=== PATIENT | male | born 1965 | race American Indian/Alaskan Native ===

== ENCOUNTER 2017-11-04 06:11 | Day surgery (SDC) | payer OTHER ==
[2017-11-04] MEDS ORDERED: WATER FOR IRRIG STERILE IR ONE (07:05)
[2017-11-04] MEDS: NACL 0.9% 1000 ML 1,000 ML IV SCH ×2 (07:42→07:50)
--- NOTE | 2017-11-04 07:45 | Anesthesia Consultation ---
Anesthesia Consult and Med Hx Date of service: 11/04/17 - Airway Anesthetic Teeth Evaluation: Good ROM Head & Neck: Adequate Mental/Hyoid Distance: Adequate Mallampati Class: Class III Intubation Access Assessment: Possibly Difficult - Pulmonary Exam CTA: Yes - Cardiac Exam Cardiac Exam: RRR - Pre-Operative Health Status ASA Pre-Surgery Classification: ASA3 Proposed Anesthetic Plan: MAC - Pre-Anesthesia Comment Pre-Anesthesia Comments: Hx CHF and SOB. Hospitalized 07/2017. EF 35%. HX DVT, Xarelto stopped 3 days ago. Intermittent right side numbness due to compressed nerve - Pulmonary SOB: Yes - Cardiovascular System Hx Hypertension: Yes Hx Angina: No Hx Peripheral Vascular Disease: Yes (DVT ) - Endocrine Hx Renal Disease: Yes (Chronic renal Insuff ) Hx Insulin Dependent Diabetes: Yes
--- NOTE | 2017-11-04 07:46 | Anesthesia Day of Surgery ---
Anesthesia Day of Surgery - Day of Surgery Patient Examined: Yes Patient H&P Reviewed: Yes Patient is NPO: Yes
[2017-11-04] MEDS ORDERED: DIPRIVAN 10 MG/ML IV ONE ×3 (07:53→09:05)
[2017-11-04] MEDS ORDERED: XYLOCAINE 1% 20 mL ONE (07:55)
[2017-11-04] MEDS ORDERED: INFANTS' GAS RELIEF PO ONE (08:35)
[2017-11-04 09:39] VITALS: BP 104/61
== END 2017-11-04 06:12 | disposition home or self-care (01) ==
LOC: GIO 06:11
PROVIDERS: ATTEND Internal Medicine Gastroenterology
DX: D12.0 Benign neoplasm of cecum (principal); K92.1 Melena; R74.8 Abnormal levels of other serum enzymes; K58.9 Irritable bowel syndrome, unspecified; K64.9 Unspecified hemorrhoids; K63.5 Polyp of colon; I13.0 Hypertensive heart and chronic kidney disease with heart failure and stage 1 through stage 4 chronic kidney disease, or unspecified chronic kidney disease; E11.22 Type 2 diabetes mellitus with diabetic chronic kidney disease; N18.9 Chronic kidney disease, unspecified; I50.9 Heart failure, unspecified; G47.33 Obstructive sleep apnea (adult) (pediatric); Z90.49 Acquired absence of other specified parts of digestive tract; Z98.890 Other specified postprocedural states; Z87.442 Personal history of urinary calculi; Z86.718 Personal history of other venous thrombosis and embolism; Z79.899 Other long term (current) drug therapy
CPT/HCPCS: 43235; 45385; 82962; 88305; J2704; J7030

== ENCOUNTER 2020-06-22 06:36 | Emergency (ER) | payer MEDICARE, OTHER ==
--- NOTE | 2020-06-22 08:59 | Event Note ---
ED Screening Note Date of service: 06/22/20 Time: 08:57 ED Screening Note: 54-year-old male patient with history of diabetes, hypertension, multiple PEs, and congestive heart failure presents to the emergency department with complaints of bilateral nontraumatic lower extremity pain for approximately a week and a half. Patient states he underwent a procedure 2 weeks ago and was instructed to hold his Xarelto for 6 days. He has since resumed his anticoagulation. No chest pain or shortness of breath. Tachycardic in triage. General: Awake, appropriately interactive, no acute distress. Neck: Supple. Full range of motion intact. Cardiovascular: Normal peripheral perfusion. Pulmonary: No respiratory distress. Patient is speaking normally without use of accessory muscles. Skin: No apparent rashes or lesions. Neurological: No facial asymmetry. Speech is clear. Follows commands. Patient is alert and oriented. Musculoskeletal: Moves all four extremities spontaneously with normal range of motion. Psych: Cooperative. Appropriate mood and affect. DVT work-up initiated; decision to pursue further diagnostic imaging for PE deferred to additional ED providers. I have greeted and performed a focused rapid initial assessment of this patient. A comprehensive ED assessment and evaluation of the patient, analysis of all test results, and completion of the medical decision-making process will be conducted by additional ED providers. This initial assessment/diagnostic orders/clinical plan/treatment(s) is/are subject to change based on patients health status, clinical progression and re-assessment. Further treatment and workup at subsequent clinical provider's discretion. Patient/guardian urged not to elope from the ED as their condition may be serious if not clinically assessed and managed.
[2020-06-22 10:10] LABS: Basophils % (Auto) 0.7 % (0.0-1.8); Eosinophils # (Auto) 0.5 K/mm3 (0.0-0.4); Eosinophils % (Auto) 7.1 % (0.0-4.3); Hematocrit 46.2 % (35.5-45.6); Lymphocytes # (Auto) 1.7 K/mm3 (1.2-5.4); Lymphocytes % (Auto) 25.8 % (13.4-35.0); Mean Corpuscular HGB Conc 35 % (32-34); Mean Corpuscular Volume 90 fl (84-94); Monocytes # (Auto) 0.5 K/mm3 (0.0-0.8); Monocytes % (Auto) 7.9 % (0.0-7.3); Platelet Count 236 K/mm3 (140-440); Red Blood Count 5.15 M/mm3 (3.65-5.03); Red Cell Distribution Width 14.3 % (13.2-15.2)
[2020-06-22 10:19] LABS: INR 1.8 (0.87-1.13)
[2020-06-22 10:20] LABS: Partial Thromboplastin Time 30.4 Sec. (24.2-36.6)
[2020-06-22 10:31] LABS: BUN/Creatinine Ratio 12; Blood Urea Nitrogen 12 mg/dL (9-20); Calcium 8.6 mg/dL (8.4-10.2); Hemolysis Index 43
--- NOTE | 2020-06-22 11:10 | Vascular Lab Report ---
DUPLEX DOPPLER LOWER EXTREMITY VEINS, BILATERAL INDICATION / CLINICAL INFORMATION: hx multiple DVT's; bilat leg pain; off Xarelto. TECHNIQUE: Duplex doppler imaging was performed through the veins of both lower extremities using venous sepideh griselda and other maneuvers. COMPARISON: 12/02/2017 FINDINGS: RIGHT COMMON FEMORAL VEIN: Negative. RIGHT FEMORAL VEIN: Negative. RIGHT POPLITEAL VEIN: Negative. RIGHT CALF VEINS: Negative. LEFT COMMON FEMORAL VEIN: Negative. LEFT FEMORAL VEIN: Negative. LEFT POPLITEAL VEIN: Negative. LEFT CALF VEINS: Negative. ADDITIONAL FINDINGS: None. IMPRESSION: 1. No sonographic evidence for DVT in either lower extremity. Signer Name: Ham Bull MD Signed: 06/22/2020 11:06 AM Workstation Name: [id number]
--- NOTE | 2020-06-22 11:27 | Emergency Department Report ---
HPI - General Chief Complaint: Extremity Injury, Lower Time Seen by Provider: 06/22/20 11:14 - HPI HPI: This is a 54-year-old male who presents to the emergency department with a complaint of a 2.5-week history of bilateral lower extremity pain, mostly over the calves and the inside of the knees. He denies any trauma, fall, injury, or obvious inciting event. He denies any lower extremity swelling, skin color change, rash, lesions. He says that the pain is constant once he is bearing weight or ambulating. The patient is pain-free when he is sitting or laying down. He has a past medical history of CHF, PE, DVT, diabetes, hypertension, sleep apnea. Patient had a prostate biopsy done on 31 May and had been off of his Xarelto for 6 days, but he restarted the medication as soon as the biopsy was completed and has been taking the medication since. He denies any chest pain, shortness of breath, back pain. Patient says that he is also seen an orthopedist when this first began and had some x-rays done and "he said I was all good." ED Past Medical Hx - Past Medical History Previous Medical History?: Yes Hx Hypertension: Yes Hx Congestive Heart Failure: Yes Hx Diabetes: Yes Hx Pulmonary Embolism: Yes Hx Renal Disease: Yes (Chronic renal Insuff ) Hx Kidney Stones: Yes (CHRONIC KIDNEY DISEASE) Additional medical history: "heart arrhythmias",DILATED CARDIOMYOPATHY,SLEEP APNEA, OBESITY,EF 35-40% 05/2017 - Surgical History Past Surgical History?: Yes Hx Cholecystectomy: Yes Additional Surgical History: metal plate in right side of face - Social History Smoking Status: Never Smoker Substance Use Type: None - Medications Home Medications: Home Medications Medication Instructions Recorded Confirmed Last Taken Type NovoLIN 70/30 40 units SUB-Q HS 11/04/17 01/26/18 1 Day Ago History ~12/01/17 40 NovoLIN 70/30 70 units SUB-Q DAILY 11/04/17 01/26/18 1 Day Ago History ~12/01/17 Furosemide [Lasix TAB] 40 mg PO QDAY tablet 12/03/17 01/26/18 01/26/18 Rx Metoprolol [Lopressor TAB] 25 mg PO BID #60 tablet 12/03/17 01/27/18 01/25/18 Rx Rivaroxaban [Xarelto] 20 mg PO QDAY #30 tablet 12/03/17 01/27/18 01/23/18 Rx Levemir Flextouch 40 units SUB-Q BID 01/26/18 01/26/18 01/26/18 History NovoLIN 70/30 40 units SUB-Q HS 01/27/18 01/27/18 01/26/18 History NovoLIN 70/30 70 units SUB-Q DAILY 01/27/18 01/27/18 01/26/18 History Cyclobenzaprine [Flexeril] 10 mg PO TID PRN #12 tablet 06/22/20 Unknown Rx ED Review of Systems ROS: Stated complaint: BILATERAL LEG PAIN Other details as noted in HPI Comment: All other systems reviewed and negative Constitutional: denies: chills, fever Eyes: denies: eye pain, vision change ENT: denies: ear pain, throat pain Respiratory: denies: cough, shortness of breath Cardiovascular: denies: chest pain, palpitations, edema Gastrointestinal: denies: abdominal pain, vomiting Genitourinary: denies: dysuria, discharge Musculoskeletal: arthralgia, myalgia. denies: back pain, joint swelling Skin: denies: rash, lesions, change in color Neurological: denies: numbness, paresthesias Physical Exam - Physical Exam Vital Signs: Vital Signs 06/22/20 06:48 Temperature 99.1 F Pulse Rate 105 H Respiratory 18 Rate Blood Pressure 121/77 O2 Sat by Pulse 94 Oximetry Physical Exam: GENERAL: The patient is well-developed well-nourished. HENT: Normocephalic. Atraumatic. Patient has moist mucous membranes. EYES: Extraocular motions are intact. NECK: Supple. Trachea is midline. CHEST/LUNGS: Clear to auscultation. There is no respiratory distress noted. HEART/CARDIOVASCULAR: Regular. There is no tachycardia. There is no murmur. ABDOMEN: Abdomen is soft, nontender. Patient has normal bowel sounds. There is no abdominal distention. SKIN: Skin is warm and dry. NEURO: The patient is awake, alert, and oriented. The patient is cooperative. The patient has no focal neurologic deficits. Normal speech. MUSCULOSKELETAL: There is some reproducible tenderness to palpation to the bilateral calves. No calf pain with pumping of the feet. +2/4 dorsalis pedis pulses and capillary refill less than 2 seconds to the bilateral feet. There is no limitation range of motion. There is no evidence of acute injury. ED Course Vital Signs 06/22/20 06:48 Temperature 99.1 F Pulse Rate 105 H Respiratory 18 Rate Blood Pressure 121/77 O2 Sat by Pulse 94 Oximetry ED Medical Decision Making - Lab Data Result diagrams: 06/22/20 09:39 06/22/20 09:39 Lab Results 06/22/20 06/22/20 06/22/20 Range/Units 09:39 09:39 09:39 WBC 6.6 (4.5-11.0) K/mm3 RBC 5.15 H (3.65-5.03) M/mm3 Hgb 16.0 H (11.8-15.2) gm/dl Hct 46.2 H (35.5-45.6) % MCV 90 (84-94) fl MCH 31 (28-32) pg MCHC 35 H (32-34) % RDW 14.3 (13.2-15.2) % Plt Count 236 (140-440) K/mm3 Lymph % (Auto) 25.8 (13.4-35.0) % Moore % (Auto) 7.9 H (0.0-7.3) % Eos % (Auto) 7.1 H (0.0-4.3) % Baso % (Auto) 0.7 (0.0-1.8) % Lymph # (Auto) 1.7 (1.2-5.4) K/mm3 Moore # (Auto) 0.5 (0.0-0.8) K/mm3 Eos # (Auto) 0.5 H (0.0-0.4) K/mm3 Baso # (Auto) 0.0 (0.0-0.1) K/mm3 Seg Neutrophils % 58.5 (40.0-70.0) % Seg Neutrophils # 3.8 (1.8-7.7) K/mm3 PT 20.8 H (12.2-14.9) Sec. INR 1.80 H (0.87-1.13) APTT 30.4 (24.2-36.6) Sec. Sodium 136 L (137-145) mmol/L Potassium 4.3 (3.6-5.0) mmol/L Chloride 104.0 (98-107) mmol/L Carbon Dioxide 22 (22-30) mmol/L Anion Gap 14 mmol/L BUN 12 (9-20) mg/dL Creatinine 1.0 (0.8-1.3) mg/dL Estimated GFR > 60 ml/min BUN/Creatinine Ratio 12 % Glucose 203 H (75-100) mg/dL Calcium 8.6 (8.4-10.2) mg/dL Magnesium 1.90 (1.7-2.3) mg/dL Total Creatine Kinase 706 H (55-170) units/L - Radiology Data Radiology results: report reviewed DUPLEX DOPPLER LOWER EXTREMITY VEINS, BILATERAL INDICATION / CLINICAL INFORMATION: hx multiple DVT's; bilat leg pain; off Xarelto. TECHNIQUE: Duplex doppler imaging was performed through the veins of both lower extremities using venous compression and other maneuvers. COMPARISON: 12/02/2017 FINDINGS: RIGHT COMMON FEMORAL VEIN: Negative. RIGHT FEMORAL VEIN: Negative. RIGHT POPLITEAL VEIN: Negative. RIGHT CALF VEINS: Negative. LEFT COMMON FEMORAL VEIN: Negative. LEFT FEMORAL VEIN: Negative. LEFT POPLITEAL VEIN: Negative. LEFT CALF VEINS: Negative. ADDITIONAL FINDINGS: None. IMPRESSION: 1. No sonographic evidence for DVT in either lower extremity. - Medical Decision Making This patient presents to the emergency department with a 2.5-week history of bilateral lower extremity pain from the calves to the knees. There is no erythema, pitting edema, rash or lesions seen. The patient appears neurovascularly intact with full range of motion of the legs and feet, palpable dorsalis pedis pulses, and capillary refill less than 2 seconds. He had blood work through triage that was mostly unremarkable except for a slightly elevated CK level of 700 that does not appear to indicate rhabdomyolysis. Since the patient had a brief period of not being anticoagulated around the time of the leg pain starting, we did a venous Doppler ultrasound of the bilateral lower extremities that did not show any evidence of DVT. He does not have any pitting edema, erythema or fluctuance or warmth concerning for abscess or infection. As there are palpable distal pulses and good capillary refill he does not appear to have any arterial insufficiency. Patient says that the pain is relatively constant upon bearing weight or ambulation. He did not have any pain with pumping of the feet. Therefore, this does not appear consistent with intermittent claudication. The patient already had an evaluation from an orthopedist including x-rays and physical examination. He is due for a follow- up appointment with his orthopedist. Patient does not appear to have any life or limb threatening emergency at this time and appears safe for discharge home. He has been instructed to follow-up with his primary care physician and return to the ER with any worsening of his symptoms or with any acute distress. Critical Care Time: No Critical care attestation.: If time is entered above; I have spent that time in minutes in the direct care of this critically ill patient, excluding procedure time. ED Disposition Clinical Impression: Bilateral lower extremity pain Disposition: DC- TO HOME OR SELFCARE Is pt being admited?: No Condition: Stable Instructions: Musculoskeletal Pain, Pain Without a Known Cause Additional Instructions: Please follow-up with your primary care physician and orthopedist. You have been prescribed a medication that is sedating and therefore should not be taken prior to driving, working, and responsible for children and in no way should be mixed with alcohol of any quantity. Return to the emergency department with any worsening of your symptoms, new or concerning symptoms not addressed during this current emergency department visit, or with any acute distress. Prescriptions: Cyclobenzaprine [Flexeril] 10 mg PO TID PRN #12 tablet PRN Reason: Muscle Spasm Referrals: FRIOLAN FERNANDEZ MD [Primary Care Provider] - 2-3 Days Time of Disposition: 11:32
[2020-06-22 11:48] VITALS: BP 126/71
== END 2020-06-22 11:48 | disposition home or self-care (01) ==
LOC: ED 06:36
DX: M79.662 Pain in left lower leg (principal); M79.661 Pain in right lower leg; I11.0 Hypertensive heart disease with heart failure; I50.9 Heart failure, unspecified; E11.9 Type 2 diabetes mellitus without complications; Z86.711 Personal history of pulmonary embolism; Z90.49 Acquired absence of other specified parts of digestive tract; Z98.890 Other specified postprocedural states; Z79.899 Other long term (current) drug therapy
CPT/HCPCS: 36415; 80048; 82550; 83735; 85025; 85610; 85730; 93970